=== PATIENT | male | born 1985 | race Caucasian/White ===

== ENCOUNTER 2016-11-12 07:10 | Emergency (ER) | payer SELFPAY ==
[~2016-11-12 07:10] MED LIST: PROZAC20 MG PO; PROZAC40 MG PO; TYLENOL500 MG PO; XANAX2 MG PO
[2016-11-12] MEDS ORDERED: LEXAPRO20 M2 PO (07:26)
[2016-11-12] MEDS ORDERED: AMOXICILLIN500 M1 PO (08:25)
== END 2016-11-12 08:36 ==
LOC: EDMED 07:10
DX: T16.2XXA Foreign body in left ear, initial encounter (principal); H66.92 Otitis media, unspecified, left ear